=== PATIENT | female | born 1970 | race American Indian/Alaskan Native ===

== ENCOUNTER 2017-11-16 23:33 | Emergency (ER) | payer BC ==
[2017-11-16 23:33] VITALS: BMI 30.5
[2017-11-16 23:52] VITALS: BP 116/65; PULSE 83; RESP 18; TEMP 97.8; O2SAT 100
--- NOTE | 2017-11-17 00:09 | ED PDOC ---
Arrival/HPI - General Chief Complaint: Abdominal Pain Time Seen by Provider: 11/16/17 23:55 Historian: Patient - History of Present Illness Narrative History of Present Illness (Text): 11/17/17 00:01 A 47 year old female, with no significant past medical history, presents to the emergency department complaining of 3 week duration, intermittent left upper abdominal discomfort that radiates to the left flank area. The patient states that she has been experiencing some urinary urgency. Her appetite is intact.Patient is currently menstruating. Patient denies fevers, chills, headache, dizziness, chest pain, shortness of breath, dyspnea on exertion, cough , nausea, vomiting, diarrhea, back pain, neck pain, bowel changes, or any other complaint. Time/Duration: Other (3 weeks) Symptom Onset: Sudden Symptom Course: Unchanged Activities at Onset: Rest, Light Context: Home Past Medical History - Provider Review Nursing Documentation Reviewed: Yes - Infectious Disease Hx of Infectious Diseases: None - Tetanus Immunization Tetanus Immunization: Unknown - Cardiac Hx Cardiac Arrhythmia: Yes (tachycardia) - Pulmonary Hx Asthma: Yes Hx Bronchitis: Yes - Neurological Hx Neurological Disorder: No - HEENT Hx HEENT Disorder: No - Renal Hx Renal Disorder: No - Endocrine/Metabolic Hx Endocrine Disorders: No - Hematological/Oncological Hx Blood Disorders: No - Integumentary Hx Dermatological Disorder: No - Musculoskeletal/Rheumatological Hx Musculoskeletal Disorders: No - Gastrointestinal Hx Gastrointestinal Disorders: No - Genitourinary/Gynecological Hx Genitourinary Disorders: No - Psychiatric Hx Psychophysiologic Disorder: No Hx Depression: No Hx Emotional Abuse: No Hx Physical Abuse: No Hx Substance Use: No - Suicidal Assessment Feels Threatened In Home Enviroment: No Family/Social History - Physician Review Nursing Documentation Reviewed: Yes Family/Social History: No Known Family HX Smoking Status: Current Some Days Smoker Hx Alcohol Use: No Hx Substance Use: No Hx Substance Use Treatment: No Allergies/Home Meds Allergies/Adverse Reactions: Allergies No Known Allergies Allergy (Verified 11/16/17 23:41) Review of Systems - Physician Review All systems were reviewed & negative as marked: Yes - Review of Systems Constitutional: absent: Fevers, Night Sweats Respiratory: absent: SOB Cardiovascular: absent: Chest Pain, GONZALEZ Gastrointestinal: Abdominal Pain (Left upper abdominal pain). absent: Diarrhea , Nausea, Vomiting Genitourinary Female: Other (Urinary Urgency) Musculoskeletal: Back Pain (Left flank pain). absent: Neck Pain Neurological: absent: Headache, Dizziness Physical Exam Vital Signs Temp Pulse Resp BP Pulse Ox 11/16/17 23:50 97.8 F 83 18 116/65 100 Temperature: Afebrile Blood Pressure: Normal Pulse: Regular Respiratory Rate: Normal Appearance: Positive for: Well-Appearing, Non-Toxic, Comfortable Pain Distress: None Mental Status: Positive for: Alert and Oriented X 3 - Systems Exam Head: Present: Atraumatic, Normocephalic Pupils: Present: PERRL Extroacular Muscles: Present: EOMI Conjunctiva: Present: Normal Mouth: Present: Moist Mucous Membranes Neck: Present: Normal Range of Motion Respiratory/Chest: Present: Clear to Auscultation, Good Air Exchange. No: Respiratory Distress, Accessory Muscle Use Cardiovascular: Present: Regular Rate and Rhythm, Normal S1, S2. No: Murmurs Abdomen: No: Tenderness, Distention, Peritoneal Signs Back: Present: Normal Inspection. No: CVA Tenderness Upper Extremity: Present: Normal Inspection. No: Cyanosis, Edema Lower Extremity: Present: Normal Inspection. No: Edema Neurological: Present: GCS=15, CN II-XII Intact, Speech Normal Skin: Present: Warm, Dry, Normal Color. No: Rashes Psychiatric: Present: Alert, Oriented x 3, Normal Insight, Normal Concentration Medical Decision Making ED Course and Treatment: 11/17/17 00:10 Impression: A 47 year old female presents to the emergency department complaining of intermittent left upper abdominal pain radiating to the left flank area for the past 3 weeks. Plan: -- Urinalysis -- Labs -- IV Fluids -- Reassess and disposition Progress Notes: CT Abdomen and Pelvis Without Intravenous Contrast Dictated and Authenticated by: Abdiel Chan MD 11/17/2017 3:01 AM Eastern Time ([place] & [place]) IMPRESSION: 1. Mild haziness vs fatty infiltration of pancreas. Correlate with amylase/ lipase levels to exclude pancreatitis. 2. Possible cystitis. Correlate with urinalysis. 2. Pulmonary nodule. For low-risk patients, no follow-up is necessary. For high- risk patients (smoking history or other known risk factors) an optional CT at 12 months could be performed. 3. Incidental/non-acute findings are described above. - Lab Interpretations Lab Results: 11/17/17 00:20 11/17/17 00:20 Lab Results 11/17/17 00:20: WBC 7.8 D, RBC 4.37, Hgb 13.5, Hct 39.4, MCV 90.2, MCH 30.9, MCHC 34.3, RDW 14.0, Plt Count 269, MPV 10.1 11/17/17 00:20: Sodium 140, Potassium 3.7, Chloride 105, Carbon Dioxide 26, Anion Gap 13, BUN 11, Creatinine 0.6 L, Est GFR ( Amer) > 60, Est GFR ( Non-Af Amer) > 60, Random Glucose 106, Calcium 9.9, Total Bilirubin 0.2, AST 15 , ALT 17, Alkaline Phosphatase 77, Total Protein 6.9, Albumin 4.1, Globulin 2.8 , Albumin/Globulin Ratio 1.5, Lipase 141 11/17/17 00:20: Urine Color Yellow, Urine Appearance Cloudy, Urine pH 6.0, Ur Specific [place] 1.025, Urine Protein Trace H, Urine Glucose (UA) Negative, Urine Ketones Trace H, Urine Blood Large H, Urine Nitrate Negative, Urine Bilirubin Negative, Urine Urobilinogen 0.2, Ur Leukocyte Esterase Trace H, Urine RBC 5 - 10, Urine WBC 2 - 5, Ur Epithelial Cells 6 - 8, Urine Bacteria Large, Urine Other Mucus, Urine HCG, Qual Negative I have reviewed the lab results: Yes - RAD Interpretation Radiology Orders: 11/17/17 01:57 ABD & PELVIS W/O PO OR IV CONT [CT] Stat - Medication Orders Current Medication Orders: Discontinued Medications Cephalexin Monohydrate (Keflex) 500 mg PO ONCE STA PRN Reason: Protocol Stop: 11/17/17 03:10 Last Admin: 11/17/17 03:22 Dose: 500 mg Sodium Chloride (Sodium Chloride 0.9%) 1,000 mls @ 100 mls/hr IV .Q10H MARRY Last Admin: 11/17/17 00:30 Dose: Not Given Non-Admin Reason: Patient Refused Tramadol HCl (Ultram) 50 mg PO STAT STA Stop: 11/17/17 03:10 Last Admin: 11/17/17 03:22 Dose: 50 mg MAR Pain Assessment Document 11/17/17 03:22 CNR (Rec: 11/17/17 03:22 CNR [id number]) Pain Reassessment Is this a pain reassessment? Yes - Scribe Statement The provider has reviewed the documentation as recorded by the Scribe Charleen Hare Provider Scribe Attestation: All medical record entries made by the Scribe were at my direction and personally dictated by me. I have reviewed the chart and agree that the record accurately reflects my personal performance of the history, physical exam, medical decision making, and the department course for this patient. I have also personally directed, reviewed, and agree with the discharge instructions and disposition. Disposition/Present on Arrival - Present on Arrival Any Indicators Present on Arrival: No History of DVT/PE: No History of Uncontrolled Diabetes: No Urinary Catheter: No History of Decub. Ulcer: No History Surgical Site Infection Following: None - Disposition Have Diagnosis and Disposition been Completed?: Yes Diagnosis: Cystitis Disposition: HOME/ ROUTINE Disposition Time: 02:55 Patient Plan: Discharge Condition: GOOD Discharge Instructions (ExitCare): Urinary Tract Infections in Adults, Acute Cystitis (DC) Additional Instructions: Drink plenty of liquids/take meds as prescribed/Follow up with your doctor this week to review your tests Prescriptions: Cephalexin [cephalexin] 500 mg PO BID #14 cap Tramadol HCl [Ultram] 50 mg PO Q6 PRN #12 tab PRN Reason: Pain, Moderate (4-7) Forms: [employer] ([place])
[2017-11-17] MEDS ORDERED: Sodium Chloride 0.9% 1,000 ML IV SCH (00:15)
[2017-11-17 00:38] LABS: HEMOGLOBIN 13.5 g/dL (12.0-16.0); MEAN CELL VOLUME 90.2 fl (80.0-105.0); MEAN CORPUSCULAR HEMOGLOBIN 30.9 pg (25.0-35.0); MEAN CORPUSCULAR HGB CONC 34.3 g/dl (31.0-37.0); MEAN PLATELET VOLUME 10.1 fl (7.0-11.0); RBC 4.37 10^6/uL (3.5-6.1); WHITE BLOOD COUNT 7.8 10^3/ul (4.5-11.0)
[2017-11-17 00:40] LABS: URINE BILIRUBIN NEGATIVE (NEGATIVE); URINE BLOOD LARGE (NEGATIVE); URINE GLUCOSE (UA) NEGATIVE (NEGATIVE); URINE LEUKOCYTE ESTERASE TRACE Leu/uL (NEGATIVE); URINE PROTEIN TRACE mg/dL (<30 mg/dL); URINE UROBILINOGEN 0.2 E.U./dL (<1 E.U./dL)
[2017-11-17 00:44] LABS: URINE APPEARANCE CLOUDY (CLEAR); URINE COLOR YELLOW (YELLOW)
[2017-11-17 00:59] LABS: ALB/GLOB RATIO 1.5 (1.1-1.8); ALBUMIN 4.1 g/dL (3.0-4.8); ALT/SGPT 17 U/L (7-56); AST/SGOT 15 U/L (14-36); BLOOD UREA NITROGEN 11 mg/dL (7-21); CALCIUM 9.9 mg/dL (8.4-10.5); GFR AFRICAN-AMERICAN > 60; GFR NON-AFRICAN AMERICAN > 60; LIPASE 141 U/L (23-300)
[2017-11-17 01:17] LABS: HCG,QUALITATIVE URINE NEGATIVE (NEGATIVE); URINE BACTERIA LARGE (NEG)
--- NOTE | 2017-11-17 03:01 | CT ---
EXAM: CT Abdomen and Pelvis Without Intravenous Contrast CLINICAL HISTORY: 47 years old, female; Pain; Abdominal pain; Generalized TECHNIQUE: Axial computed tomography images of the abdomen and pelvis without intravenous contrast. All CT scans at this facility use one or more dose reduction techniques, viz.: automated exposure control; ma/kV adjustment per patient size (including targeted exams where dose is matched to indication; i.e. head); or iterative reconstruction technique. Coronal and sagittal reformatted images were created and reviewed. COMPARISON: No relevant prior studies available. FINDINGS: Limitations: Motion artifact - mild. Lack of intravenous contrast. Lung bases: 0.3 cm RIGHT lower lobe nodule. ABDOMEN: Liver: Unremarkable. Gallbladder and bile ducts: No calcified stones. No ductal dilation. Pancreas: Mild haziness versus fatty infiltration of pancreas. No pancreatic ductal dilation. Spleen: No splenomegaly. Adrenals: No mass. Kidneys and ureters: No renal calculi. Stomach and bowel: Segmental areas of probable underdistention of LEFT colon. No definite mural thickening. No obstruction. PELVIS: Appendix: Normal caliber. No inflammation. Bladder: Borderline bladder wall thickening, 4-5 mm. No stones. Reproductive: Small left ovarian follicle. ABDOMEN and PELVIS: Intraperitoneal space: No significant fluid collection. No free air. Bones/joints: No acute fracture. Soft tissues: Small umbilical hernia containing fat. Vasculature: Minimal to mild atherosclerotic disease. No aneurysm. Lymph nodes: No pathologically enlarged lymph nodes. IMPRESSION: 1. Mild haziness vs fatty infiltration of pancreas. Correlate with amylase/lipase levels to exclude pancreatitis. 2. Possible cystitis. Correlate with urinalysis. 2. Pulmonary nodule. For low-risk patients, no follow-up is necessary. For high-risk patients (smoking history or other known risk factors) an optional CT at 12 months could be performed. 3. Incidental/non-acute findings are described above.
== END 2017-11-17 03:22 | disposition home or self-care (01) ==
LOC: ED 23:33
DX: N30.90 Cystitis, unspecified without hematuria (principal); F17.200 Nicotine dependence, unspecified, uncomplicated

== ENCOUNTER 2018-01-16 02:45 | Emergency (ER) | payer BC ==
[2018-01-16 02:58] VITALS: BMI 29.4
--- NOTE | 2018-01-16 03:24 | ED PDOC ---
Arrival/HPI - General Chief Complaint: Abdominal Pain Time Seen by Provider: 01/16/18 03:05 Historian: Patient - History of Present Illness Narrative History of Present Illness (Text): 01/16/18 03:15 47 year old female presents to the Emergency department complaining of abdominal pain. Patient was evaluated here approximately 2 months ago for abdominal pain and was diagnosed with a UTI. Patient followed up with manager billing who states she did not have a UTI but rather a bacterial infection. Tonight, the patient was showering when she suddenly experienced severe pain in the periumbilical area that radiated up to her chest. The patient because scared and thought she would collapse so she called emergency services. Patient states that the pain was severe while at home and in the ambulance but has improved while in the Emergency department. Patient also reports that she has not had a bowel movement in 4 days but this is normal for her. She explained that the older she gets, the longer it is between bowel movements, and the worse she feels. Patient denies any fever, chills, shortness of breath, nausea, vomiting, diarrhea, urinary symptoms, back pain, neck pain, headache, dizziness, or any other complaints. Time/Duration: 1-3 hours, < week Symptom Onset: Sudden, Gradual Symptom Course: Improving Activities at Onset: Light Context: Home Past Medical History - Provider Review Nursing Documentation Reviewed: Yes - Infectious Disease Hx of Infectious Diseases: None - Tetanus Immunization Tetanus Immunization: Unknown - Cardiac Hx Cardiac Disorders: Yes Hx Cardiac Arrhythmia: Yes (tachycardia) - Pulmonary Hx Respiratory Disorders: Yes Hx Asthma: Yes Hx Bronchitis: Yes - Neurological Hx Neurological Disorder: No - HEENT Hx HEENT Disorder: No - Renal Hx Renal Disorder: No - Endocrine/Metabolic Hx Endocrine Disorders: No - Hematological/Oncological Hx Blood Disorders: No - Integumentary Hx Dermatological Disorder: No - Musculoskeletal/Rheumatological Hx Musculoskeletal Disorders: No - Gastrointestinal Hx Gastrointestinal Disorders: No - Genitourinary/Gynecological Hx Genitourinary Disorders: No - Psychiatric Hx Psychophysiologic Disorder: No Hx Substance Use: No - Suicidal Assessment Feels Threatened In Home Enviroment: No Family/Social History - Physician Review Nursing Documentation Reviewed: Yes Family/Social History: Unknown Family HX Smoking Status: Current Some Days Smoker Hx Alcohol Use: Yes Frequency of alcohol use: Socially Hx Substance Use: No Hx Substance Use Treatment: No Allergies/Home Meds Allergies/Adverse Reactions: Allergies No Known Allergies Allergy (Verified 01/16/18 03:17) Review of Systems - Physician Review All systems were reviewed & negative as marked: Yes - Review of Systems Constitutional: absent: Fevers, Night Sweats Respiratory: absent: SOB Gastrointestinal: Abdominal Pain, Constipation. absent: Diarrhea, Nausea, Vomiting Genitourinary Female: absent: Dysuria Musculoskeletal: absent: Back Pain, Neck Pain Neurological: absent: Headache, Dizziness Physical Exam Vital Signs Reviewed: Yes Vital Signs Temp Pulse Resp BP Pulse Ox 01/16/18 04:45 78 18 100 01/16/18 02:55 97.6 F 80 18 126/77 100 Temperature: Afebrile Blood Pressure: Normal Pulse: Regular Respiratory Rate: Normal Appearance: Positive for: Well-Appearing, Non-Toxic, Comfortable Pain Distress: None Mental Status: Positive for: Alert and Oriented X 3 - Systems Exam Head: Present: Atraumatic, Normocephalic Pupils: Present: PERRL Extroacular Muscles: Present: EOMI Conjunctiva: Present: Normal Mouth: Present: Moist Mucous Membranes Neck: Present: Normal Range of Motion Respiratory/Chest: Present: Clear to Auscultation, Good Air Exchange. No: Respiratory Distress, Accessory Muscle Use Cardiovascular: Present: Regular Rate and Rhythm, Normal S1, S2. No: Murmurs Abdomen: No: Tenderness, Distention, Normal Bowel Sounds (hyperactive bowel sounds) Back: Present: Normal Inspection Upper Extremity: Present: Normal Inspection. No: Cyanosis, Edema Lower Extremity: Present: Normal Inspection. No: Edema Neurological: Present: GCS=15, CN II-XII Intact, Speech Normal Skin: Present: Warm, Dry, Normal Color. No: Rashes Psychiatric: Present: Alert, Oriented x 3, Normal Insight, Normal Concentration Medical Decision Making ED Course and Treatment: 01/16/18 03:25 Impression: 47 year old female presents to the Emergency department complaining of abdominal pain. Plan: -- CT scan of the abdomen and pelvis -- Chest xray -- EKG -- Labs -- Reassess and disposition Prior Visits: Notes and results from previous visits were reviewed. Patient was last seen in the emergency department on 11/17/17, was diagnosed with cystitis, and was discharged home. Progress Notes: 01/16/18 03:43 Patient complaining of pain at this time. Will administer Toradol, Zofran, and Mylicon. 01/16/18 06:37 CT report shows abnormalities with urinary bladder and pancreas. Radiologist recommends MRI Abdomen for clarification. Ordered after discussing this with the patient. UA/c+s also ordered. Will endorse patient to oncoming physician as it is the end of my clinical shift. - Lab Interpretations Lab Results: 01/16/18 03:15 01/16/18 03:15 Lab Results 01/16/18 03:15: Sodium 140, Potassium 3.5 L, Chloride 104, Carbon Dioxide 26, Anion Gap 14, BUN 15, Creatinine 0.7, Est GFR ( Amer) > 60, Est GFR (Non- Af Amer) > 60, Random Glucose 106, Calcium 9.8, Total Bilirubin 0.3, AST 19, ALT 23, Alkaline Phosphatase 81, Lactate Dehydrogenase 479, Total Creatine Kinase 65, Troponin I < 0.01, Total Protein 6.9, Albumin 3.9, Globulin 2.9, Albumin/Globulin Ratio 1.3, Lipase 138 01/16/18 03:15: PT 11.1, INR 0.97 01/16/18 03:15: WBC 5.0 D, RBC 4.37, Hgb 13.6, Hct 39.1, MCV 89.5, MCH 31.1, MCHC 34.8, RDW 13.5, Plt Count 240, MPV 9.8, Gran % 42.6 L, Lymph % (Auto) 49.4 H, [place] % (Auto) 4.6, Eos % (Auto) 3.2, Baso % (Auto) 0.2, Gran # 2.13, Lymph # (Auto) 2.5, [place] # (Auto) 0.2, Eos # (Auto) 0.2, Baso # (Auto) 0.01 - RAD Interpretation Radiology Orders: 01/16/18 03:19 ABD PELVIS PO & IV CONTRAST [CT] Stat CXR [CHEST PORTABLE] [RAD] Stat 01/16/18 06:36 ABDOMEN W/WO CONTRAST [MRI] Stat - EKG Interpretation EKG Interpretation (Text): 01/16/18 05:20 EKG: Ordered, reviewed, and independently interpreted the EKG. Rate : 81 BPM Rhythm : NSR Interpretation : No ST-segment elevations or depressions, no T-wave inversions, normal intervals. Interpreted by ED Physician: Yes Type: 12 lead EKG - Medication Orders Current Medication Orders: Discontinued Medications Sodium Chloride (Sodium Chloride 0.9%) 1,000 mls @ 999 mls/hr IV .Q1H1M STA Stop: 01/16/18 04:42 Last Admin: 01/16/18 04:03 Dose: 999 mls/hr eMAR Start Stop Document 01/16/18 04:03 JOL (Rec: 01/16/18 04:03 CHRISTIANO [email or web address]) Intravenous Solution Start Date 01/16/18 Start Time 04:03 End Date 01/16/18 End time 04:04 Total Infusion Time 1 Ketorolac Tromethamine (Toradol) 30 mg IVP STAT STA Stop: 01/16/18 03:43 Last Admin: 01/16/18 04:03 Dose: 30 mg BRITT Pain Assessment Document 01/16/18 04:03 JOL (Rec: 01/16/18 04:04 CHRISTIANO [id number]) Pain Reassessment Is this a pain reassessment? No Sleep Is patient sleeping during reassessment? No Presence of Pain Presence of Pain Yes Pain Scale Used Pain Scale Used Numeric Location Upper or Lower Upper Pain Location Body Site Abdomen Description Intensity of Pain at present 8 Acceptable Level of Pain 2 Pain Behavior Moaning Crying Guarding Withdrawal from Touch Restlessness Facial Grimacing IVP Administration Document 01/16/18 04:03 JOL (Rec: 01/16/18 04:04 CHRISTIANO [id number]) Charges for Administration # of IVP Administrations 1 Re-Assess: MAR Pain Assessment Document 01/16/18 05:03 JOL (Rec: 01/16/18 05:27 JOL [id number]) Pain Reassessment Is this a pain reassessment? Yes Sleep Is patient sleeping during reassessment? No Presence of Pain Presence of Pain Yes Pain Scale Used Pain Scale Used Numeric Location Pain Location Body Site Abdomen Description Intensity of Pain at present 8 Pain not relieved and LIP/MD was Yes: new orders given notified Morphine Sulfate (Morphine) 2 mg IVP STAT STA Stop: 01/16/18 04:55 Last Admin: 01/16/18 04:45 Dose: 2 mg MAR Pain Assessment Document 01/16/18 04:45 JOL (Rec: 01/16/18 05:24 CHRISTIANO [id number]) Pain Reassessment Is this a pain reassessment? No Sleep Is patient sleeping during reassessment? No Presence of Pain Presence of Pain Yes Pain Scale Used Pain Scale Used Numeric Location Upper or Lower Upper Pain Location Body Site Abdomen Description Intensity of Pain at present 8 Pain Behavior Moaning Restlessness Facial Grimacing Thrashing Aggravating Factors ADL's Changing Position IVP Administration Document 01/16/18 04:45 JOL (Rec: 01/16/18 05:24 CHRISTIANO [id number]) Charges for Administration # of IVP Administrations 1 Ondansetron HCl (Zofran Inj) 4 mg IVP STAT STA Stop: 01/16/18 03:43 Last Admin: 01/16/18 04:04 Dose: 4 mg IVP Administration Document 01/16/18 04:04 JOL (Rec: 01/16/18 04:04 CHRISTIANO [email or web address]) Charges for Administration # of IVP Administrations 1 Simethicone (Mylicon Liq) 80 mg PO STAT STA Stop: 01/16/18 03:43 Last Admin: 01/16/18 04:03 Dose: 80 mg - Scribe Statement The provider has reviewed the documentation as recorded by the Thee Wang Provider Scribe Attestation: All medical record entries made by the Thee were at my direction and personally dictated by me. I have reviewed the chart and agree that the record accurately reflects my personal performance of the history, physical exam, medical decision making, and the department course for this patient. I have also personally directed, reviewed, and agree with the discharge instructions and disposition. Disposition/Present on Arrival - Present on Arrival Any Indicators Present on Arrival: No History of DVT/PE: No History of Uncontrolled Diabetes: No Urinary Catheter: No History of Decub. Ulcer: No History Surgical Site Infection Following: None - Disposition Have Diagnosis and Disposition been Completed?: Yes Diagnosis: Abdominal pain, Generalized colicky abdominal pain Disposition Time: 07:00 (endorsed to oncoming physician ) Patient Plan: Other (transfer of care to oncoming physician. ) Patient Problems: Current Active Problems Problem Status Onset Abdominal pain Acute Generalized colicky abdominal pain Acute Condition: STABLE Discharge Instructions (ExitCare): Acute Abdomen (Belly Pain), Adult (DC) Referrals: Xavier Soto MD [Primary Care Provider] - Follow up with primary Forms: [employer] (Chinese), WORK NOTE, SCHOOL NOTE
[2018-01-16 03:32] LABS: BASO # 0.01 K/mm3 (0.0-2.0); BASO % 0.2 % (0.0-3.0); EOS # 0.2 (0.0-0.7); EOS % 3.2 % (1.5-5.0); GRAN # 2.13 (1.4-6.5); GRAN % 42.6 % (50.0-68.0); HEMOGLOBIN 13.6 g/dL (12.0-16.0); LYMPH # 2.5 (1.2-3.4); LYMPH % 49.4 % (22.0-35.0); MEAN CELL VOLUME 89.5 fl (80.0-105.0); MEAN CORPUSCULAR HEMOGLOBIN 31.1 pg (25.0-35.0); MEAN CORPUSCULAR HGB CONC 34.8 g/dl (31.0-37.0); MEAN PLATELET VOLUME 9.8 fl (7.0-11.0); MONO # 0.2 (0.1-0.6); MONO % 4.6 % (1.0-6.0); RBC 4.37 10^6/uL (3.5-6.1); RED CELL DISTRIBUTION WIDTH 13.5 % (11.5-14.5)
[2018-01-16 03:38] LABS: INR 0.97 (0.93-1.08); PROTHROMBIN TIME 11.1 SECONDS (9.4-12.5)
[2018-01-16 03:39] LABS: ALB/GLOB RATIO 1.3 (1.1-1.8); ALBUMIN 3.9 g/dL (3.0-4.8); ALT/SGPT 23 U/L (7-56); AST/SGOT 19 U/L (14-36); BLOOD UREA NITROGEN 15 mg/dL (7-21); CALCIUM 9.8 mg/dL (8.4-10.5); GFR NON-AFRICAN AMERICAN > 60; LIPASE 138 U/L (23-300)
[2018-01-16] MEDS ORDERED: Simethicone 40 mg/0.6 ml Liquid (30 ml) PO STA (03:42)
[2018-01-16] MEDS ORDERED: Iohexol 240 (50 ml) ONE (03:42)
[2018-01-16] MEDS ORDERED: Sodium Chloride 0.9% 1,000 ML IV STA (03:42)
[2018-01-16] MEDS ORDERED: Iohexol 350 MG/100 ML VIAL ONE (03:49)
[2018-01-16 03:51] LABS: TROPONIN I < 0.01 ng/mL
[2018-01-16] MEDS ORDERED: Morphine 4 mg/ml ISec IVP STA (04:43)
[2018-01-16] MEDS ORDERED: Morphine 4 mg/ml ISec ONE (04:44)
[2018-01-16] MEDS ORDERED: Morphine 2 mg/ml ISec IVP STA (04:54)
--- NOTE | 2018-01-16 06:28 | CT ---
EXAM: CT Abdomen and Pelvis With Intravenous Contrast CLINICAL HISTORY: 47 years old, female; Pain; Abdominal pain; Generalized; Additional info: Generalized abdominal pain TECHNIQUE: Axial computed tomography images of the abdomen and pelvis with intravenous contrast. All CT scans at this facility use at least one of these dose optimization techniques: automated exposure control; mA and/or kV adjustment per patient size (includes targeted exams where dose is matched to clinical indication); or iterative reconstruction. Coronal and sagittal reformatted images were created and reviewed. COMPARISON: CT - ABD PELVIS W/O PO OR IV CONT 2017-11-17 02:12 FINDINGS: Lung bases: Unremarkable. No mass. No consolidation. ABDOMEN: Liver: Unremarkable. No mass. Gallbladder and bile ducts: Unremarkable. No calcified stones. No ductal dilation. Pancreas: There is a poorly defined, irregular area of low attenuation abnormality in the head of the pancreas (series 2, image 33). Differential diagnosis includes pancreatitis, pancreatic mass. Please assess whether this may correspond to patient's clinical presentation. Followup MRI of the abdomen with special attention to the pancreas is recommended. No ductal dilation. Spleen: Unremarkable. No splenomegaly. Adrenals: Unremarkable. No mass. Kidneys and ureters: Unremarkable. No solid mass. No hydronephrosis. Stomach and bowel: Unremarkable. No obstruction. No mucosal thickening. PELVIS: Appendix: A normal appendix is identified. Bladder: There is urinary bladder wall thickening. This is nonspecific but can be seen in the setting of cystitis, please correlate clinically. Reproductive: Unremarkable as visualized. ABDOMEN and PELVIS: Intraperitoneal space: Unremarkable. No free air. No significant fluid collection. Bones/joints: No acute fracture. No dislocation. Soft tissues: Unremarkable. Vasculature: Unremarkable. No abdominal aortic aneurysm. Lymph nodes: Unremarkable. No enlarged lymph nodes. IMPRESSION: 1. There is urinary bladder wall thickening. This is nonspecific but can be seen in the setting of cystitis, please correlate clinically. 2. There is a poorly defined, irregular area of low attenuation abnormality in the head of the pancreas (series 2, image 33). Differential diagnosis includes pancreatitis, pancreatic mass. Please assess whether this may correspond to patient's clinical presentation. Followup MRI of the abdomen with special attention to the pancreas is recommended.
[2018-01-16 06:45] LABS: PH,URINE 6.5 (4.7-8.0); URINE BILIRUBIN NEGATIVE (NEGATIVE); URINE BLOOD NEGATIVE (NEGATIVE); URINE GLUCOSE (UA) NEGATIVE (NEGATIVE); URINE LEUKOCYTE ESTERASE NEGATIVE Leu/uL (NEGATIVE); URINE PROTEIN NEGATIVE mg/dL (<30 mg/dL); URINE UROBILINOGEN 0.2 E.U./dL (<1 E.U./dL)
[2018-01-16 06:46] LABS: URINE APPEARANCE CLEAR (CLEAR); URINE COLOR STRAW (YELLOW)
--- NOTE | 2018-01-16 07:13 | ED PDOC ---
Physical Exam - Physical Exam Narrative Physical Exam (Text): 01/16/18 07:31 General: alert/awake, GCS = 15, oriented x 3, resting in bed, uncomfortable, cooperative, interactive; NAD Head: NC/AT EYE: PERRLA, EOMI, sclera anicteric, no nystagmus, no photophobia; visual field intact b/l Facial: WNL Oral: uvula/tongue are midline, no exudate/lesions, no drooling/stridor, no dysphonia; intact dentitions NECK: intact ROM, no midline tenderness, no nuchal rigidity, no meningeal signs ; no step off Chest: CTA b/l, no w/r/r; no tachypenia, no accessory muscle use noted Cardiac: +S1, +S2, no m/r/r, no tachycardia Abdominal: +BS, soft/nd, mild mid abd tenderness, well nourished patient; no masses/rebound/guarding/rigidity; no caballero's sign, no mcburney's point tenderness Extremities: intact ROM, strength 5/5 grossly intact in all limbs, neurovasc intact b/l; + ambulatory; reflex +2/2; no pitting edema/swelling b/l; no Del' s sign b/l BACK: no step off, no midline tenderness, NO crepitus, no gross deformities noted; Intact ROM SKIN: cap refill < 1 sec, no ulcerations, no petechiae, no rashes; no pallor NEURO: CNII-XII WNL, no facial asymmetries, no slurr speech, oriented x 3 NIH stroke scale ~ 0 Psych: normal insight, normal affect; follows command with ease Vital Signs Reviewed: Yes Vital Signs Temp Pulse Resp BP Pulse Ox 01/16/18 13:30 100 01/16/18 13:21 64 18 126/78 100 01/16/18 11:20 68 17 125/80 99 01/16/18 09:36 65 17 121/78 99 01/16/18 07:33 99.1 F 01/16/18 07:15 68 17 123/80 99 01/16/18 06:45 76 18 120/71 99 01/16/18 04:45 78 18 100 01/16/18 02:55 97.6 F 80 18 126/77 100 Temperature: Afebrile Blood Pressure: Normal Pulse: Regular Respiratory Rate: Normal Appearance: Positive for: Well-Appearing, Non-Toxic, Uncomfortable. No: Comfortable, Ill-Appearing, Unkept Pain Distress: None Mental Status: Positive for: Alert and Oriented X 3 - Systems Exam Head: Present: Atraumatic, Normocephalic Medical Decision Making ED Course and Treatment: 01/16/18 07:10 Case signed out to me by Dr. Villanueva. Patient is a 47 year old female presents to the Emergency department complaining of abdominal pain associated with constipation since 4 days, which she states is common for her. All blood work was negative and CT scan revealed possible mass at the head of pancreas. radiology recommended MRI and Dr. Villanueva ordered it due to patient's concerns. pt is awaiting Urinalysis results as well, and final disposition. 01/16/18 07:32 i spoke to the patient at length, pt continues to have abd bloating and cramps pt is feeling improved after pain medications given patient's persistent pain/bloating/cramps and concerns, recommended pt for admission pt agrees will page Dr Soto 01/16/18 07:35 pt now changed her mind and would prefer to be discharged home 01/16/18 08:[address] Soto, who recommends MRI in emergency department. will refer patient to Dr. Hackett, and will continue to monitor as out- patient. 01/16/18 1200 pt is comfortable pt is not in acute distress awaiting MRI results 1325 pt is made aware of her medical results pt is encouraged blend diet/hydration pt will follow up as directed pt will be discharged home 1330 Dr Soto is at bedside, evaluated patient and agrees with emergency department mgt/txt/dx; will continue to monitor patient as outpt; pt can be discharged home Re-evaluation Time: 07:31 Reassessment Condition: Improving,but remains with symptoms - Lab Interpretations Lab Results: 01/16/18 03:15 01/16/18 03:15 Lab Results 01/16/18 06:39: Urine Color Straw, Urine Appearance Clear, Urine pH 6.5, Ur Specific [place] <= 1.005, Urine Protein Negative, Urine Glucose (UA) Negative, Urine Ketones Negative, Urine Blood Negative, Urine Nitrate Negative, Urine Bilirubin Negative, Urine Urobilinogen 0.2, Ur Leukocyte Esterase Negative 01/16/18 03:15: Sodium 140, Potassium 3.5 L, Chloride 104, Carbon Dioxide 26, Anion Gap 14, BUN 15, Creatinine 0.7, Est GFR ( Amer) > 60, Est GFR (Non- Af Amer) > 60, Random Glucose 106, Calcium 9.8, Total Bilirubin 0.3, AST 19, ALT 23, Alkaline Phosphatase 81, Lactate Dehydrogenase 479, Total Creatine Kinase 65, Troponin I < 0.01, Total Protein 6.9, Albumin 3.9, Globulin 2.9, Albumin/Globulin Ratio 1.3, Lipase 138 01/16/18 03:15: PT 11.1, INR 0.97 01/16/18 03:15: WBC 5.0 D, RBC 4.37, Hgb 13.6, Hct 39.1, MCV 89.5, MCH 31.1, MCHC 34.8, RDW 13.5, Plt Count 240, MPV 9.8, Gran % 42.6 L, Lymph % (Auto) 49.4 H, [place] % (Auto) 4.6, Eos % (Auto) 3.2, Baso % (Auto) 0.2, Gran # 2.13, Lymph # (Auto) 2.5, [place] # (Auto) 0.2, Eos # (Auto) 0.2, Baso # (Auto) 0.01 I have reviewed the lab results: Yes Interpretation: All labs normal - RAD Interpretation Narrative RAD Interpretations (Text): 01/16/18 07:37 CT Scan ABD PELVIS PO IV CONTRAST Exam Date: 01/16/18 This imaging exam was performed at [facility] EXAM: CT Abdomen and Pelvis With Intravenous Contrast CLINICAL HISTORY: 47 years old, female; Pain; Abdominal pain; Generalized; Additional info: Generalized abdominal pain TECHNIQUE: Axial computed tomography images of the abdomen and pelvis with intravenous contrast. All CT scans at this facility use at least one of these dose optimization techniques: automated exposure control; mA and/or kV adjustment per patient size (includes targeted exams where dose is matched to clinical indication); or iterative reconstruction. Coronal and sagittal reformatted images were created and reviewed. COMPARISON: CT - ABD PELVIS W/O PO OR IV CONT 2017-11-17 02:12 FINDINGS: Lung bases: Unremarkable. No mass. No consolidation. ABDOMEN: Liver: Unremarkable. No mass. Gallbladder and bile ducts: Unremarkable. No calcified stones. No ductal dilation. Pancreas: There is a poorly defined, irregular area of low attenuation abnormality in the head of the pancreas (series 2, image 33). Differential diagnosis includes pancreatitis, pancreatic mass. Please assess whether this may correspond to patient's clinical presentation. Followup MRI of the abdomen with special attention to the pancreas is recommended. No ductal dilation. Spleen: Unremarkable. No splenomegaly. Adrenals: Unremarkable. No mass. Kidneys and ureters: Unremarkable. No solid mass. No hydronephrosis. Stomach and bowel: Unremarkable. No obstruction. No mucosal thickening. PELVIS: Appendix: A normal appendix is identified. Bladder: There is urinary bladder wall thickening. This is nonspecific but can be seen in the setting of cystitis, please correlate clinically. Reproductive: Unremarkable as visualized. ABDOMEN and PELVIS: Intraperitoneal space: Unremarkable. No free air. No significant fluid collection. Bones/joints: No acute fracture. No dislocation. Soft tissues: Unremarkable. Vasculature: Unremarkable. No abdominal aortic aneurysm. Lymph nodes: Unremarkable. No enlarged lymph nodes. IMPRESSION: 1. There is urinary bladder wall thickening. This is nonspecific but can be seen in the setting of cystitis, please correlate clinically. 2. There is a poorly defined, irregular area of low attenuation abnormality in the head of the pancreas (series 2, image 33). Differential diagnosis includes pancreatitis, pancreatic mass. Please assess whether this may correspond to patient's clinical presentation. Followup MRI of the abdomen with special attention to the pancreas is recommended. Dictated By: Robin Chang MD, MD Dictated Date/Time: 01/16/18627 Signed By: Robin Chang MD Date Signed: 627 Transcribed By: PERRY Transcribe Date/Time : 01/16/18627 GAETANO/DELANO ---- 01/16/18 07:38 Chest X-Ray - NAD HISTORY: Epigastric Pain COMPARISON: 04/16/2014. FINDINGS: LUNGS: The lungs are well inflated and clear. PLEURA: No significant pleural effusion identified, no pneumothorax apparent. CARDIOVASCULAR: Normal. OSSEOUS STRUCTURES: No significant abnormalities. VISUALIZED UPPER ABDOMEN: Normal. OTHER FINDINGS: None. IMPRESSION: No active pulmonary disease ---- PROCEDURE: MRI Abdomen with and without contrast and MRCP HISTORY: Abnormal CT. Possible pancreatic mass. COMPARISON: CT abdomen/pelvis 01/16/2018. TECHNIQUE: Multisequence, multiplanar MR images of the abdomen with and without gadolinium contrast enhancement. FINDINGS: LIVER: Normal size, contour and signal intensity. No mass. No intrahepatic biliary ductal dilatation. GALLBLADDER: Cholelithiasis. No mural thickening or pericholecystic fluid. Common bile duct 6 mm diameter. No filling defect identified. Normal distal smooth tapering. SPLEEN: Unremarkable. PANCREAS: No mass. No abnormal enhancement. No pancreatic ductal dilatation. No peripancreatic fluid or edema. ADRENALS: Unremarkable. KIDNEYS: Unremarkable. AORTA: No aneurysm. ASCITES: None. PERITONEUM: Unremarkable. LYMPH NODES: Unremarkable. OTHER FINDINGS: None. IMPRESSION: No evidence pancreatic mass. No evidence of pancreatitis. Cholelithiasis without evidence of cholecystitis. No additional abnormality. 01/16/18 14:16 Radiology Orders: 01/16/18 03:19 ABD PELVIS PO & IV CONTRAST [CT] Stat CXR [CHEST PORTABLE] [RAD] Stat 01/16/18 06:36 ABDOMEN W/WO CONTRAST [MRI] Stat Applications Engineering Manager: Radiologist - Medication Orders Current Medication Orders: Discontinued Medications Sodium Chloride (Sodium Chloride 0.9%) 1,000 mls @ 999 mls/hr IV .Q1H1M STA Stop: 01/16/18 04:42 Last Admin: 01/16/18 04:03 Dose: 999 mls/hr eMAR Start Stop Document 01/16/18 04:03 CHRISTIANO (Rec: 01/16/18 04:03 CHRISTIANO [id number]) Intravenous Solution Start Date 01/16/18 Start Time 04:03 End Date 01/16/18 End time 04:04 Total Infusion Time 1 Ketorolac Tromethamine (Toradol) 30 mg IVP STAT STA Stop: 01/16/18 03:43 Last Admin: 01/16/18 04:03 Dose: 30 mg BRITT Pain Assessment Document 01/16/18 04:03 JOL (Rec: 01/16/18 04:04 JOL [id number]) Pain Reassessment Is this a pain reassessment? No Sleep Is patient sleeping during reassessment? No Presence of Pain Presence of Pain Yes Pain Scale Used Pain Scale Used Numeric Location Upper or Lower Upper Pain Location Body Site Abdomen Description Intensity of Pain at present 8 Acceptable Level of Pain 2 Pain Behavior Moaning Crying Guarding Withdrawal from Touch Restlessness Facial Grimacing IVP Administration Document 01/16/18 04:03 JOL (Rec: 01/16/18 04:04 JOL [id number]) Charges for Administration # of IVP Administrations 1 Re-Assess: BRITT Pain Assessment Document 01/16/18 05:03 JOL (Rec: 01/16/18 05:27 JOL [id number]) Pain Reassessment Is this a pain reassessment? Yes Sleep Is patient sleeping during reassessment? No Presence of Pain Presence of Pain Yes Pain Scale Used Pain Scale Used Numeric Location Pain Location Body Site Abdomen Description Intensity of Pain at present 8 Pain not relieved and LIP/MD was Yes: new orders given notified Morphine Sulfate (Morphine) 2 mg IVP STAT STA Stop: 01/16/18 04:55 Last Admin: 01/16/18 04:45 Dose: 2 mg BRITT Pain Assessment Document 01/16/18 04:45 JOL (Rec: 01/16/18 05:24 JOL [id number]) Pain Reassessment Is this a pain reassessment? No Sleep Is patient sleeping during reassessment? No Presence of Pain Presence of Pain Yes Pain Scale Used Pain Scale Used Numeric Location Upper or Lower Upper Pain Location Body Site Abdomen Description Intensity of Pain at present 8 Pain Behavior Moaning Restlessness Facial Grimacing Thrashing Aggravating Factors ADL's Changing Position IVP Administration Document 01/16/18 04:45 JOL (Rec: 01/16/18 05:24 JOL [id number]) Charges for Administration # of IVP Administrations 1 Ondansetron HCl (Zofran Inj) 4 mg IVP STAT STA Stop: 01/16/18 03:43 Last Admin: 01/16/18 04:04 Dose: 4 mg IVP Administration Document 01/16/18 04:04 CHRISTIANO (Rec: 01/16/18 04:04 CHRISTIANO [id number]) Charges for Administration # of IVP Administrations 1 Simethicone (Mylicon Liq) 80 mg PO STAT STA Stop: 01/16/18 03:43 Last Admin: 01/16/18 04:03 Dose: 80 mg - Scribe Statement The provider has reviewed the documentation as recorded by the Coreenibe Allison Granados Provider Scribe Attestation: All medical record entries made by the Scribe were at my direction and personally dictated by me. I have reviewed the chart and agree that the record accurately reflects my personal performance of the history, physical exam, medical decision making, and the department course for this patient. I have also personally directed, reviewed, and agree with the discharge instructions and disposition. Disposition/Present on Arrival - Present on Arrival Any Indicators Present on Arrival: No History of DVT/PE: No History of Uncontrolled Diabetes: No Urinary Catheter: No History of Decub. Ulcer: No History Surgical Site Infection Following: None - Disposition Have Diagnosis and Disposition been Completed?: Yes Diagnosis: Abdominal pain, Generalized colicky abdominal pain, Gallstones Disposition: HOME/ ROUTINE Disposition Time: 13:05 Patient Plan: Discharge Condition: STABLE Discharge Instructions (ExitCare): Gallstones, Bonner Diet, Acute Abdomen ( Belly Pain), Adult (DC) Print Language: IVORIAN Additional Instructions: Make sure to see your doctor in 1-2 days DRINK PLENTY OF FLUIDS take your medications as prescribed AVOID fatty foods RETURN TO ED IF worse pain, cant breath, persistent vomiting, high fever >101- 102 for hours, altered behavior, slurr speech, facial changes, focal weakness ( arm/leg or both), unable to urinate, heavy/persistent bleeding, passing out, chest pain, or other medical emergencies Prescriptions: Famotidine [Pepcid] 20 mg PO BID #30 tab Ibuprofen [Motrin] 600 mg PO QID PRN #30 tab PRN Reason: Pain, Mild (1-3) traMADol [Ultram] 50 mg PO TID PRN #15 tab PRN Reason: Pain, Moderate (4-7) Referrals: Xavier Soto MD [Primary Care Provider] - Follow up with primary Ramon Miranda MD [Staff Provider] - Follow up with primary [facility] [facility] [Outside] - Follow up with primary [facility] [Outside] - [place] up [place] [facility] [place] - Follow up with primary Forms: [employer] [facility] (Tajik), WORK NOTE
[2018-01-16 07:33] VITALS: TEMP 99.1
--- NOTE | 2018-01-16 08:32 | RAD ---
HISTORY: Epigastric Pain COMPARISON: 04/16/2014. FINDINGS: LUNGS: The lungs are well inflated and clear. PLEURA: No significant pleural effusion identified, no pneumothorax apparent. CARDIOVASCULAR: Normal. OSSEOUS STRUCTURES: No significant abnormalities. VISUALIZED UPPER ABDOMEN: Normal. OTHER FINDINGS: None. IMPRESSION: No active pulmonary disease.
[2018-01-16] MEDS ORDERED: Gadodiamide 287 MG/ML VIAL (15ML) IV ONE (12:23)
--- NOTE | 2018-01-16 12:55 | MRI ---
PROCEDURE: MRI Abdomen with and without contrast and MRCP HISTORY: Abnormal CT. Possible pancreatic mass. COMPARISON: CT abdomen/pelvis 01/16/2018. TECHNIQUE: Multisequence, multiplanar MR images of the abdomen with and without gadolinium contrast enhancement. FINDINGS: LIVER: Normal size, contour and signal intensity. No mass. No intrahepatic biliary ductal dilatation. GALLBLADDER: Cholelithiasis. No mural thickening or pericholecystic fluid. Common bile duct 6 mm diameter. No filling defect identified. Normal distal smooth tapering. SPLEEN: Unremarkable. PANCREAS: No mass. No abnormal enhancement. No pancreatic ductal dilatation. No peripancreatic fluid or edema. ADRENALS: Unremarkable. KIDNEYS: Unremarkable. AORTA: No aneurysm. ASCITES: None. PERITONEUM: Unremarkable. LYMPH NODES: Unremarkable. OTHER FINDINGS: None. IMPRESSION: No evidence pancreatic mass. No evidence of pancreatitis. Cholelithiasis without evidence of cholecystitis. No additional abnormality.
[2018-01-16 13:21] VITALS: BP 126/78; PULSE 64; RESP 18; O2SAT 100
--- NOTE | 2018-01-16 22:56 | CARD ---
APPROVED REPORT EKG Measurement Heart [id number] <Conclusion> Normal sinus rhythm Nonspecific T wave abnormality Abnormal ECG
== END 2018-01-16 13:30 | disposition home or self-care (01) ==
LOC: ED 02:45
DX: R10.0 Acute abdomen (principal); K80.20 Calculus of gallbladder without cholecystitis without obstruction
CPT/HCPCS: 71045; 74177; 74183; 80053; 81003; 82550; 83615; 83690; 84484; 85025; 85610; 87086; 93005; 96374; 96375; 99285; A9579; J1885; J2270; J2405; J7030; Q9966; Q9967

== ENCOUNTER 2018-02-23 04:17 | Emergency (ER) | payer BC ==
[2018-02-23 04:18] VITALS: BMI 29.4
--- NOTE | 2018-02-23 04:29 | ED PDOC ---
Arrival/HPI - General Chief Complaint: Abdominal Pain Time Seen by Provider: 02/23/18 04:19 Historian: Patient - History of Present Illness Narrative History of Present Illness (Text): 02/23/18 04:29 Dana Mathew is a 47 year old female, whose past medical history includes cholelithiasis and asthma, who presents to the Emergency department complaining of worsening diffuse abdominal pain tonight. Patient reports associated nausea. Patient denies any fever, chills, chest pain, shortness of breath, vomiting, diarrhea, urinary symptoms, back pain, neck pain, headache, dizziness, or any other complaints. Symptom Onset: Gradual Symptom Course: Worsening Activities at Onset: Light Context: Home Past Medical History - Provider Review Nursing Documentation Reviewed: Yes - Infectious Disease Hx of Infectious Diseases: None - Tetanus Immunization Tetanus Immunization: Unknown - Cardiac Hx Cardiac Disorders: Yes Hx Cardiac Arrhythmia: Yes (tachycardia) - Pulmonary Hx Respiratory Disorders: Yes Hx Asthma: Yes Hx Bronchitis: Yes - Neurological Hx Neurological Disorder: No - HEENT Hx HEENT Disorder: No - Renal Hx Renal Disorder: No - Endocrine/Metabolic Hx Endocrine Disorders: No - Hematological/Oncological Hx Blood Disorders: No - Integumentary Hx Dermatological Disorder: No - Musculoskeletal/Rheumatological Hx Musculoskeletal Disorders: No - Gastrointestinal Hx Gastrointestinal Disorders: No - Genitourinary/Gynecological Hx Genitourinary Disorders: No - Psychiatric Hx Psychophysiologic Disorder: No Hx Substance Use: No - Suicidal Assessment Feels Threatened In Home Enviroment: No Family/Social History - Physician Review Nursing Documentation Reviewed: Yes Family/Social History: Unknown Family HX Smoking Status: Current Some Days Smoker Hx Alcohol Use: Yes Hx Substance Use: No Hx Substance Use Treatment: No Allergies/Home Meds Allergies/Adverse Reactions: Allergies No Known Allergies Allergy (Verified 02/23/18 04:24) Review of Systems - Physician Review All systems were reviewed & negative as marked: Yes - Review of Systems Constitutional: Normal. absent: Fevers Eyes: Normal ENT: Normal Respiratory: Normal. absent: SOB, Cough Cardiovascular: Normal. absent: Chest Pain Gastrointestinal: Abdominal Pain, Nausea. absent: Diarrhea, Vomiting Genitourinary Female: Normal. absent: Dysuria, Frequency, Hematuria, Urine Output Changes Musculoskeletal: Normal. absent: Back Pain, Neck Pain Skin: Normal. absent: Rash Neurological: Normal. absent: Headache, Dizziness Endocrine: Normal Hemo/Lymphatic: Normal Psychiatric: Normal Physical Exam Vital Signs Reviewed: Yes Vital Signs Pulse Resp BP Pulse Ox 02/23/18 04:24 100 H 24 134/89 100 Temperature: Afebrile Blood Pressure: Normal Pulse: Regular Respiratory Rate: Normal Appearance: Positive for: Well-Appearing, Non-Toxic, Comfortable Pain Distress: None Mental Status: Positive for: Alert and Oriented X 3 - Systems Exam Head: Present: Atraumatic, Normocephalic Pupils: Present: PERRL Extroacular Muscles: Present: EOMI Conjunctiva: Present: Normal Mouth: Present: Moist Mucous Membranes Neck: Present: Normal Range of Motion. No: Meningeal Signs, MIDLINE TENDERNESS , Paraspinal Tenderness Respiratory/Chest: Present: Clear to Auscultation, Good Air Exchange. No: Respiratory Distress, Accessory Muscle Use Cardiovascular: Present: Regular Rate and Rhythm, Normal S1, S2. No: Murmurs Abdomen: Present: Tenderness (Diffuse abdominal tenderness). No: Distention, Peritoneal Signs Back: Present: Normal Inspection. No: CVA Tenderness, Midline Tenderness, Paraspinal Tenderness Upper Extremity: Present: Normal Inspection. No: Cyanosis, Edema Lower Extremity: Present: Normal Inspection. No: Edema Neurological: Present: GCS=15, CN II-XII Intact, Speech Normal Skin: Present: Warm, Dry, Normal Color. No: Rashes Psychiatric: Present: Alert, Oriented x 3, Normal Insight, Normal Concentration Medical Decision Making ED Course and Treatment: 02/23/18 04:29 Impression: 47 year old female complaining of worsening diffuse abdominal pain and nausea. Plan: -- CT Abdomen and Pelvis with IV contrast -- Labs, lipase -- IV fluids -- Zofran -- Morphine -- Reassess and disposition Prior Visits: Notes and results from previous visits were reviewed. Progress Notes: 02/23/18 05:11 Case discussed with cardiovascular surgical tech communication skills instructor, who is aware and agrees to evaluate pt. 02/23/18 05:51 Pt. seen by cardiovascular surgical tech.Ultrasound un officially shows gallstones no impaction no CBD dilatation.LFTs normal.Pt. pain out of proportion to findings.Agrees with Abdominal CT. 02/23/18 07:[address] Villanueva/pending CT Scan Abd/Pel./final disposition - Lab Interpretations Lab Results: 02/23/18 04:25 02/23/18 04:25 Lab Results 02/23/18 04:25: WBC 8.7 D, RBC 4.70, Hgb 14.5, Hct 42.0, MCV 89.4, MCH 30.9, MCHC 34.5, RDW 14.0, Plt Count 282, MPV 10.3 02/23/18 04:25: Sodium 141, Potassium 3.2 L, Chloride 107, Carbon Dioxide 23, Anion Gap 14, BUN 12, Creatinine 0.7, Est GFR ( Amer) > 60, Est GFR (Non- Af Amer) > 60, Random Glucose 125 H, Calcium 9.8, Total Bilirubin 0.5, AST 35, ALT 21, Alkaline Phosphatase 81, Total Protein 7.0, Albumin 4.2, Globulin 2.8, Albumin/Globulin Ratio 1.5, Lipase 204 I have reviewed the lab results: Yes - RAD Interpretation Radiology Orders: 02/23/18 04:43 ABD & PELVIS IV CONTRAST ONLY [CT] Stat 02/23/18 05:07 ABDOMEN COMPLETE [US] Stat - Medication Orders Current Medication Orders: Discontinued Medications Sodium Chloride (Sodium Chloride 0.9%) 1,000 mls @ 999 mls/hr IV .Q1H1M STA Stop: 02/23/18 05:31 Last Admin: 02/23/18 04:35 Dose: 999 mls/hr eMAR Start Stop Document 02/23/18 04:35 JOL (Rec: 02/23/18 04:36 JOLivan [id number]) Intravenous Solution Start Date 02/23/18 Start Time 04:35 End Date 02/23/18 End time 05:36 Total Infusion Time 61 Morphine Sulfate (Morphine) 4 mg IVP STAT STA Stop: 02/23/18 04:31 Last Admin: 02/23/18 04:35 Dose: 4 mg MAR Pain Assessment Document 02/23/18 04:35 JOL (Rec: 02/23/18 04:35 JOL [id number]) Pain Reassessment Is this a pain reassessment? No Sleep Is patient sleeping during reassessment? No Presence of Pain Presence of Pain Yes Pain Scale Used Pain Scale Used Numeric Location Upper or Lower Upper Pain Location Body Site Abdomen Description Intensity of Pain at present 10 Pain Behavior Moaning Crying Guarding Withdrawal from Touch Restlessness Facial Grimacing Screaming Aggravating Factors ADL's Changing Position IVP Administration Document 02/23/18 04:35 JOL (Rec: 02/23/18 04:35 JOL [id number]) Charges for Administration # of IVP Administrations 1 Re-Assess: BRITT Pain Assessment Document 02/23/18 05:35 JOL (Rec: 02/23/18 05:55 JOL [id number]) Pain Reassessment Is this a pain reassessment? Yes Sleep Is patient sleeping during reassessment? No Presence of Pain Presence of Pain Yes Pain Scale Used Pain Scale Used Numeric Location Upper or Lower Upper Pain Location Body Site Abdomen Description Intensity of Pain at present 4 Pain Behavior Restlessness Facial Grimacing Alleviating Factors/Management Medication Techniques Morphine Sulfate (Morphine) 4 mg IVP STAT STA Stop: 02/23/18 04:43 Last Admin: 02/23/18 04:45 Dose: 4 mg [facility] Pain Assessment Document 02/23/18 04:45 JOL (Rec: 02/23/18 04:46 JOL [id number]) Pain Reassessment Is this a pain reassessment? No Sleep Is patient sleeping during reassessment? No Presence of Pain Presence of Pain Yes Pain Scale Used Pain Scale Used Numeric Location Upper or Lower Upper Pain Location Body Site Abdomen Description Description Sharp Intensity of Pain at present 9 Pain Behavior Moaning Crying Restlessness Facial Grimacing Screaming Aggravating Factors ADL's Changing Position IVP Administration Document 02/23/18 04:45 JOL (Rec: 02/23/18 04:46 JOL [id number]) Charges for Administration # of IVP Administrations 1 Re-Assess: BRITT Pain Assessment Document 02/23/18 05:45 JOL (Rec: 02/23/18 05:56 JOL [id number]) Pain Reassessment Is this a pain reassessment? Yes Sleep Is patient sleeping during reassessment? No Presence of Pain Presence of Pain Yes Pain Scale Used Pain Scale Used Numeric Location Upper or Lower Upper Pain Location Body Site Abdomen Description Intensity of Pain at present 4 Pain Behavior Rubbing Site Restlessness Facial Grimacing Alleviating Factors/Management Medication Techniques Ondansetron HCl (Zofran Inj) 4 mg IVP ONCE ONE Stop: 02/23/18 04:31 Last Admin: 02/23/18 04:35 Dose: 4 mg IVP Administration Document 02/23/18 04:35 JOL (Rec: 02/23/18 04:35 CHRISTIANO [id number]) Charges for Administration # of IVP Administrations 1 Potassium Chloride (K-Dur 20 Meq Er Tab) 40 meq PO STAT STA Stop: 02/23/18 05:10 - Scribe Statement The provider has reviewed the documentation as recorded by the Scribe Parul Matias All medical record entries made by the Scribe were at my direction and personally dictated by me. I have reviewed the chart and agree that the record accurately reflects my personal performance of the history, physical exam, medical decision making, and the department course for this patient. I have also personally directed, reviewed, and agree with the discharge instructions and disposition. Disposition/Present on Arrival - Present on Arrival Any Indicators Present on Arrival: No History of DVT/PE: No History of Uncontrolled Diabetes: No Urinary Catheter: No History of Decub. Ulcer: No History Surgical Site Infection Following: None - Disposition Have Diagnosis and Disposition been Completed?: No Diagnosis: Abdominal pain Disposition Time: 07:00 Patient Problems: Current Active Problems Problem Status Onset Abdominal pain Acute Condition: STABLE Referrals: Will Garrett MD [Staff Provider] - Forms: [employer] (Georgian)
[2018-02-23] MEDS ORDERED: Morphine 4 mg/ml ISec IVP STA (04:30)
[2018-02-23] MEDS ORDERED: Sodium Chloride 0.9% 1,000 ML IV STA (04:31)
[2018-02-23] MEDS ORDERED: Morphine 4 mg/ml ISec ONE (04:33)
[2018-02-23] MEDS ORDERED: HYDROmorphone 1 mg/ml ISec IVP STA (04:40)
[2018-02-23] MEDS ORDERED: Morphine 2 mg/ml ISec IVP STA (04:42)
[2018-02-23 04:55] LABS: HEMOGLOBIN 14.5 g/dL (12.0-16.0); MEAN CELL VOLUME 89.4 fl (80.0-105.0); MEAN CORPUSCULAR HEMOGLOBIN 30.9 pg (25.0-35.0); MEAN CORPUSCULAR HGB CONC 34.5 g/dl (31.0-37.0); MEAN PLATELET VOLUME 10.3 fl (7.0-11.0); RBC 4.7 10^6/uL (3.5-6.1); WHITE BLOOD COUNT 8.7 10^3/ul (4.5-11.0)
[2018-02-23 05:00] LABS: ALB/GLOB RATIO 1.5 (1.1-1.8); ALBUMIN 4.2 g/dL (3.0-4.8); ALT/SGPT 21 U/L (7-56); AST/SGOT 35 U/L (14-36); BLOOD UREA NITROGEN 12 mg/dL (7-21); CALCIUM 9.8 mg/dL (8.4-10.5); GFR AFRICAN-AMERICAN > 60; GFR NON-AFRICAN AMERICAN > 60; LIPASE 204 U/L (23-300)
[2018-02-23] MEDS ORDERED: Potassium Chloride 20 mEq ER Tab PO STA (05:09)
[2018-02-23] MEDS ORDERED: Iohexol 350 MG/100 ML VIAL ONE (06:41)
--- NOTE | 2018-02-23 08:34 | ED PDOC ---
Physical Exam - Physical Exam Narrative Physical Exam (Text): 02/23/18 Head: Present: Atraumatic, Normocephalic Pupils: Present: PERRL Extroacular Muscles: Present: EOMI Conjunctiva: Present: Normal Mouth: Present: Moist Mucous Membranes Neck: Present: Normal Range of Motion. No: Meningeal Signs, MIDLINE TENDERNESS , Paraspinal Tenderness Respiratory/Chest: Present: Clear to Auscultation, Good Air Exchange. No: Respiratory Distress, Accessory Muscle Use Cardiovascular: Present: Regular Rate and Rhythm, Normal S1, S2. No: Murmurs Abdomen: Present: Tenderness (Diffuse abdominal tenderness). No: Distention, Peritoneal Signs Back: Present: Normal Inspection. No: CVA Tenderness, Midline Tenderness, Paraspinal Tenderness Upper Extremity: Present: Normal Inspection. No: Cyanosis, Edema Lower Extremity: Present: Normal Inspection. No: Edema Neurological: Present: GCS=15, CN II-XII Intact, Speech Normal Skin: Present: Warm, Dry, Normal Color. No: Rashes Psychiatric: Present: Alert, Oriented x 3, Normal Insight, Normal Concentration Vital Signs Reviewed: Yes Vital Signs Temp Pulse Resp BP Pulse Ox 02/23/18 08:18 98.2 F 78 18 124/79 98 02/23/18 04:24 100 H 24 134/89 100 Temperature: Afebrile Blood Pressure: Normal Pulse: Regular Respiratory Rate: Normal Appearance: Positive for: Well-Appearing, Non-Toxic, Comfortable Pain Distress: None Mental Status: Positive for: Alert and Oriented X 3 Medical Decision Making ED Course and Treatment: 02/23/18 04:29 Impression: 47 year old female complaining of worsening diffuse abdominal pain and nausea. Plan: -- CT Abdomen and Pelvis with IV contrast -- Labs, lipase -- IV fluids -- Zofran -- Morphine -- Reassess and disposition Prior Visits: Notes and results from previous visits were reviewed. Progress Notes: 02/23/18 05:11 Case discussed with neurosurgical nurse practitioner longwall headgate operator, who is aware and agrees to evaluate pt. 02/23/18 05:51 Pt. seen by neurosurgical nurse practitioner.Ultrasound un officially shows gallstones no impaction no CBD dilatation.LFTs normal.Pt. pain out of proportion to findings.Agrees with Abdominal CT. 02/23/18 07:[address] Villanueva/pending CT Scan Abd/Pel./final disposition. 02/23/18 07:05 Case transferred to [place] by Dr. Gaitan pending CT Scan Abd/Pel./final disposition. Patients notes she wants to go home. As long as imaging results are consistent with safe discharge, patient will be discharged home. Patient to follow up with surgeon in [place]. 02/23/18 09:30 CT of Abdomen/Pelvis shows: 1. Cholelithiasis 2. Abnormality in the pancreatic head, unchanged from prior study. US shows: Gallstones, but no gallbladder wall thickening or pericholecystic fluid. - Lab Interpretations Lab Results: 02/23/18 04:25 02/23/18 04:25 Lab Results 02/23/18 04:25: WBC 8.7 D, RBC 4.70, Hgb 14.5, Hct 42.0, MCV 89.4, MCH 30.9, MCHC 34.5, RDW 14.0, Plt Count 282, MPV 10.3 02/23/18 04:25: Sodium 141, Potassium 3.2 L, Chloride 107, Carbon Dioxide 23, Anion Gap 14, BUN 12, Creatinine 0.7, Est GFR ( Amer) > 60, Est GFR (Non- Af Amer) > 60, Random Glucose 125 H, Calcium 9.8, Total Bilirubin 0.5, AST 35, ALT 21, Alkaline Phosphatase 81, Total Protein 7.0, Albumin 4.2, Globulin 2.8, Albumin/Globulin Ratio 1.5, Lipase 204 - RAD Interpretation Radiology Orders: 02/23/18 04:43 ABD & PELVIS IV CONTRAST ONLY [CT] Stat 02/23/18 05:07 ABDOMEN COMPLETE [US] Stat - Medication Orders Current Medication Orders: Discontinued Medications Sodium Chloride (Sodium Chloride 0.9%) 1,000 mls @ 999 mls/hr IV .Q1H1M STA Stop: 02/23/18 05:31 Last Admin: 02/23/18 04:35 Dose: 999 mls/hr eMAR Start Stop Document 02/23/18 04:35 JOLivan (Rec: 02/23/18 04:36 CHRISTIANO [id number]) Intravenous Solution Start Date 02/23/18 Start Time 04:35 End Date 02/23/18 End time 05:36 Total Infusion Time 61 Morphine Sulfate (Morphine) 4 mg IVP STAT STA Stop: 02/23/18 04:31 Last Admin: 02/23/18 04:35 Dose: 4 mg MAR Pain Assessment Document 02/23/18 04:35 JOL (Rec: 02/23/18 04:35 JOL [id number]) Pain Reassessment Is this a pain reassessment? No Sleep Is patient sleeping during reassessment? No Presence of Pain Presence of Pain Yes Pain Scale Used Pain Scale Used Numeric Location Upper or Lower Upper Pain Location Body Site Abdomen Description Intensity of Pain at present 10 Pain Behavior Moaning Crying Guarding Withdrawal from Touch Restlessness Facial Grimacing Screaming Aggravating Factors ADL's Changing Position IVP Administration Document 02/23/18 04:35 JOL (Rec: 02/23/18 04:35 JOL [id number]) Charges for Administration # of IVP Administrations 1 Re-Assess: [facility] Pain Assessment Document 02/23/18 05:35 JOL (Rec: 02/23/18 05:55 JOL [id number]) Pain Reassessment Is this a pain reassessment? Yes Sleep Is patient sleeping during reassessment? No Presence of Pain Presence of Pain Yes Pain Scale Used Pain Scale Used Numeric Location Upper or Lower Upper Pain Location Body Site Abdomen Description Intensity of Pain at present 4 Pain Behavior Restlessness Facial Grimacing Alleviating Factors/Management Medication Techniques Morphine Sulfate (Morphine) 4 mg IVP STAT STA Stop: 02/23/18 04:43 Last Admin: 02/23/18 04:45 Dose: 4 mg [facility] Pain Assessment Document 02/23/18 04:45 JOL (Rec: 02/23/18 04:46 JOL [id number]) Pain Reassessment Is this a pain reassessment? No Sleep Is patient sleeping during reassessment? No Presence of Pain Presence of Pain Yes Pain Scale Used Pain Scale Used Numeric Location Upper or Lower Upper Pain Location Body Site Abdomen Description Description Sharp Intensity of Pain at present 9 Pain Behavior Moaning Crying Restlessness Facial Grimacing Screaming Aggravating Factors ADL's Changing Position IVP Administration Document 02/23/18 04:45 JOL (Rec: 02/23/18 04:46 JOL [id number]) Charges for Administration # of IVP Administrations 1 Re-Assess: [facility] Pain Assessment Document 02/23/18 05:45 JOL (Rec: 02/23/18 05:56 CHRISTIANO [id number]) Pain Reassessment Is this a pain reassessment? Yes Sleep Is patient sleeping during reassessment? No Presence of Pain Presence of Pain Yes Pain Scale Used Pain Scale Used Numeric Location Upper or Lower Upper Pain Location Body Site Abdomen Description Intensity of Pain at present 4 Pain Behavior Rubbing Site Restlessness Facial Grimacing Alleviating Factors/Management Medication Techniques Ondansetron HCl (Zofran Inj) 4 mg IVP ONCE ONE Stop: 02/23/18 04:31 Last Admin: 02/23/18 04:35 Dose: 4 mg IVP Administration Document 02/23/18 04:35 CHRISTIANO (Rec: 02/23/18 04:35 CHRISTIANO [id number]) Charges for Administration # of IVP Administrations 1 Potassium Chloride (K-Dur 20 Meq Er Tab) 40 meq PO STAT STA Stop: 02/23/18 05:10 - Scribe Statement The provider has reviewed the documentation as recorded by the Scribe Shanice Rivera All medical record entries made by the Scribe were at my direction and personally dictated by me. I have reviewed the chart and agree that the record accurately reflects my personal performance of the history, physical exam, medical decision making, and the department course for this patient. I have also personally directed, reviewed, and agree with the discharge instructions and disposition. Disposition/Present on Arrival - Present on Arrival Any Indicators Present on Arrival: No History of DVT/PE: No History of Uncontrolled Diabetes: No Urinary Catheter: No History of Decub. Ulcer: No History Surgical Site Infection Following: None - Disposition Have Diagnosis and Disposition been Completed?: Yes Diagnosis: Abdominal pain, Gallstones Disposition: HOME/ ROUTINE Disposition Time: 09:29 Patient Plan: Discharge Condition: STABLE Discharge Instructions (ExitCare): Acute Abdomen (Belly Pain), Adult (DC), Gallstones (DC) Additional Instructions: Please follow up with your surgeon in [place] or with Dr. Garrett. Referrals: Will Garrett MD [Staff Provider] - Forms: [employer] (Divehi)
[2018-02-23 09:00] VITALS: RESP 18
[2018-02-23 10:08] VITALS: BP 132/88; PULSE 72; TEMP 98.4; O2SAT 99
--- NOTE | 2018-02-23 10:33 | CT ---
Date of service: 02/23/2018 PROCEDURE: CT Abdomen and Pelvis with contrast HISTORY: abdominal pain COMPARISON: 01/16/2018 CT TECHNIQUE: Contrast dose: 100 cc of Omni 350 Radiation dose: Total exam DLP = 653 mGy-cm. This CT exam was performed using one or more of the following dose reduction techniques: Automated exposure control, adjustment of the mA and/or kV according to patient size, and/or use of iterative reconstruction technique. FINDINGS: LOWER THORAX: Unremarkable. LIVER: Unremarkable. No gross lesion or ductal dilatation. GALLBLADDER AND BILE DUCTS: There is a small amount of pericholecystic fluid which could be due to cholecystitis. There are no obvious stones PANCREAS: There is a hypodense lesion seen in the head of the pancreas measuring 16 x 26 mm. This is unchanged from the previous study. Further evaluation is recommended. This is suspicious for pancreatic neoplasm. SPLEEN: Unremarkable. ADRENALS: Unremarkable. No mass. KIDNEYS AND URETERS: Unremarkable. No hydronephrosis. No solid mass. VASCULATURE: Unremarkable. No aortic aneurysm. BOWEL: Unremarkable. No obstruction. No gross mural thickening. APPENDIX: Normal appendix. PERITONEUM: Unremarkable. No free fluid. No free air. LYMPH NODES: Unremarkable. No enlarged lymph nodes. BLADDER: Unremarkable. REPRODUCTIVE: Right-sided ovarian cysts BONES: No acute fracture. OTHER FINDINGS: The report concurs with the preliminary [facility] report IMPRESSION: There is a hypodense lesion seen in the head of the pancreas measuring 16 x 26 mm. This is unchanged from the previous study. Further evaluation is recommended. This is suspicious for pancreatic neoplasm. There is a small amount of pericholecystic fluid. Possible cholecystitis.
--- NOTE | 2018-02-23 11:22 | US ---
Date of service: 02/23/2018 HISTORY: abdominal pain COMPARISON: None. TECHNIQUE: Sonographic evaluation of the abdomen. FINDINGS: LIVER: Measures 14.0 cm. Normal echogenicity of the liver parenchyma. No mass. No intrahepatic bile duct dilatation. GALLBLADDER: Multiple gallstones COMMON BILE DUCT: Measures 6.6 mm. No stones. No dilatation. PANCREAS: Unremarkable as visualized. No mass. No ductal dilatation. RIGHT KIDNEY: Measures 10.6 x 4.4 x 4.7cm. Normal echogenicity. No calculus, mass, or hydronephrosis. LEFT KIDNEY: Measures 11.3 x 5.3 x 5.4cm. Normal echogenicity. No calculus, mass, or hydronephrosis. SPLEEN: Normal in size and contour. No mass. 9.4 x 5.8 x 3.3 cm AORTA: No aneurysmal dilatation. IVC: Unremarkable. OTHER FINDINGS: The report concurs with the preliminary [facility] report IMPRESSION: Multiple gallstones
--- NOTE | 2018-02-23 14:11 | CP.PCM.CON ---
History of Present Illness - History of Present Illness History of Present Illness: General Surgery Consult Note for Dr. Garrett CC: Abdominal pain This is a 47F c/o RUQ colicky abdominal pain. The pain started in December on and off on her previous ER visit she had an ultrasound that showed previous stones. She wwas given a referral to see Dr. Kennedy however she did not. This last episode was 2:30 am last night while she was sleeping. Pt. reports having a fatty meal the night of the most recent attack. At the time of exam the patient reports complete resolution of the pain. Pt. reports nausea but did not vomit. Pt denies fever, diarrhea, chills, chest pain, SOB. The patient reports that she has established care with a general surgeon however she has not established a surgery date. PMH: cholilithisasis, GERD, anxiety PSH: All: NKA Meds: Zanax, Ibubrofen otc FH: mom and sister had gall stones SH: smokes 0.5 PPD since the age of 33, denies illicit drugs Review of Systems - Review of Systems Review of Systems: 12 point review of symptoms negative except for abdominal pain Past Patient History - Infectious Disease Hx of Infectious Diseases: None - Tetanus Immunizations Tetanus Immunization: Unknown - Past Social History Smoking Status: Current Some Days Smoker - CARDIAC Hx Cardiac Disorders: Yes Hx Cardia Arrhythmia: Yes (tachycardia) - PULMONARY Hx Respiratory Disorders: Yes Hx Asthma: Yes Hx Bronchitis: Yes - NEUROLOGICAL Hx Neurological Disorder: No - HEENT Hx HEENT Problems: No - RENAL Hx Chronic Kidney Disease: No - ENDOCRINE/METABOLIC Hx Endocrine Disorders: No - HEMATOLOGICAL/ONCOLOGICAL Hx Blood Disorders: No - INTEGUMENTARY Hx Dermatological Problems: No - MUSCULOSKELETAL/RHEUMATOLOGICAL Hx Musculoskeletal Disorders: No - GASTROINTESTINAL Hx Gastrointestinal Disorders: No - GENITOURINARY/GYNECOLOGICAL Hx Genitourinary Disorders: No - PSYCHIATRIC Hx Psychophysiologic Disorder: No Hx Substance Use: No - SURGICAL HISTORY Hx Surgeries: No Meds Allergies/Adverse Reactions: Allergies Allergy/AdvReac Type Severity Reaction Status Date / Time No Known Allergies Allergy Verified 02/23/18 04:24 Physical Exam - Constitutional Appears: Well, No Acute Distress - Head Exam Head Exam: ATRAUMATIC, NORMAL INSPECTION, NORMOCEPHALIC - Respiratory Exam Respiratory Exam: Clear to Auscultation Bilateral, NORMAL BREATHING PATTERN. absent: Rales, Rhonchi, Wheezes, Respiratory Distress, Stridor - Cardiovascular Exam Cardiovascular Exam: REGULAR RHYTHM, RRR, +S1, +S2. absent: Diastolic murmur, Gallop, Rubs, +S4, Systolic Murmur - GI/Abdominal Exam GI & Abdominal Exam: Normal Bowel Sounds, Soft. absent: Organomegaly, Pulsatile Mass, Rigid, Tenderness - Rectal Exam Additional comments: Negative Larose - Extremities Exam Extremities exam: Negative for: pedal edema - Back Exam Back exam: absent: CVA tenderness (L), CVA tenderness (R) - Neurological Exam Neurological exam: Alert, Altered - Psychiatric Exam Psychiatric exam: Normal Affect, Normal Mood - Skin Skin Exam: Dry, Intact Results - Vital Signs Recent Vital Signs: Last Vital Signs Temp 98.4 F 02/23/18 09:35 Pulse 72 02/23/18 09:35 Resp 18 02/23/18 09:35 BP 132/88 02/23/18 09:35 Pulse Ox 99 02/23/18 09:35 - Labs Result Diagrams: 02/23/18 04:25 02/23/18 04:25 Labs: Laboratory Results - last 24 hr 02/23/18 02/23/18 04:25 04:25 WBC 8.7 D RBC 4.70 Hgb 14.5 Hct 42.0 MCV 89.4 MCH 30.9 MCHC 34.5 RDW 14.0 Plt Count 282 MPV 10.3 Sodium 141 Potassium 3.2 L Chloride 107 Carbon Dioxide 23 Anion Gap 14 BUN 12 Creatinine 0.7 Est GFR ( Amer) > 60 Est GFR (Non-Af Amer) > 60 Random Glucose 125 H Calcium 9.8 Total Bilirubin 0.5 AST 35 ALT 21 Alkaline Phosphatase 81 Total Protein 7.0 Albumin 4.2 Globulin 2.8 Albumin/Globulin Ratio 1.5 Lipase 204 Assessment & Plan - Assessment and Plan (Free Text) Assessment: This is a 47F with biliary colic Patient reports she is being managed by another surgeon She prefers not to have surgery at this time D/W With Dr. Garrett [phone]
== END 2018-02-23 09:35 | disposition home or self-care (01) ==
LOC: ED 04:17
DX: K80.20 Calculus of gallbladder without cholecystitis without obstruction (principal); R10.11 Right upper quadrant pain; F17.210 Nicotine dependence, cigarettes, uncomplicated
CPT/HCPCS: 74177; 76700; 80053; 83690; 85027; 96361; 96374; 96375; 99284; J2270; J2405; J7030; Q9967

== ENCOUNTER 2018-03-02 09:20 | Day surgery (SDC) | payer BC ==
[2018-03-02 08:10] VITALS: BMI 29.9
[2018-03-02 10:58] LABS: BASO # 0.02 K/mm3 (0.0-2.0); BASO % 0.3 % (0.0-3.0); EOS # 0.2 (0.0-0.7); EOS % 3.3 % (1.5-5.0); GRAN # 3.41 (1.4-6.5); HEMOGLOBIN 15.9 g/dL (12.0-16.0); LYMPH % 43.5 % (22.0-35.0); MEAN CELL VOLUME 89.6 fl (80.0-105.0); MEAN CORPUSCULAR HEMOGLOBIN 31.7 pg (25.0-35.0); MEAN CORPUSCULAR HGB CONC 35.3 g/dl (31.0-37.0); MEAN PLATELET VOLUME 10.3 fl (7.0-11.0); MONO # 0.3 (0.1-0.6); MONO % 3.9 % (1.0-6.0); RBC 5.02 10^6/uL (3.5-6.1)
[2018-03-02 11:00] LABS: INR 1.05; PROTHROMBIN TIME 12.1 SECONDS (9.4-12.5)
[2018-03-02 11:03] LABS: PARTIAL THROMBOPLASTIN TIME 34.7 Seconds (25.1-36.5)
[2018-03-02 11:43] LABS: ALB/GLOB RATIO 1.5 (1.1-1.8); ALBUMIN 4.5 g/dL (3.0-4.8); ALT/SGPT 23 U/L (7-56); AMYLASE 83 U/L (35-125); AST/SGOT 13 U/L (14-36); BLOOD UREA NITROGEN 9 mg/dL (7-21); GAMMA GLUTAMYL TRANSPEPTIDASE 89 U/L (8-78); GFR NON-AFRICAN AMERICAN > 60; LIPASE 138 U/L (23-300)
[2018-03-02] MEDS ORDERED: Propofol 10 mg/ml Inj (20 ML) ONE ×3 (12:20→13:46)
[2018-03-02] MEDS ORDERED: Phenylephrine 10 mg/ml Inj ONE (12:52)
[2018-03-02] MEDS ORDERED: Sodium Chloride 0.9% 1,000 ML IV SCH (14:45)
[2018-03-02 16:29] VITALS: BP 103/80; PULSE 99; RESP 16; TEMP 98.2; O2SAT 99
== END 2018-03-02 16:20 | disposition home or self-care (01) ==
LOC: ENDO 09:20
PROVIDERS: ATTEND Internal Medicine Gastroenterology
DX: K86.9 Disease of pancreas, unspecified (principal); K25.9 Gastric ulcer, unspecified as acute or chronic, without hemorrhage or perforation; K80.80 Other cholelithiasis without obstruction; K29.50 Unspecified chronic gastritis without bleeding; K21.9 Gastro-esophageal reflux disease without esophagitis; F41.9 Anxiety disorder, unspecified; R10.9 Unspecified abdominal pain
CPT/HCPCS: 36415; 43239; 43259; 80053; 82150; 82977; 83690; 84703; 85025; 85610; 85730; 88305; 88342; J2001; J2370; J2704; J7030; J7040

== ENCOUNTER 2018-05-03 06:14 | Day surgery (SDC) | payer BC ==
[2018-04-30 10:31] VITALS: BMI 29.7
[2018-05-03] MEDS ORDERED: Iohexol 240 (50 ml) ONE (08:37)
[2018-05-03] MEDS ORDERED: Bupivacaine 0.5% 50 ML IJ ONE (08:37)
[2018-05-03] MEDS ORDERED: HYDROmorphone 1 mg/ml ISec IVP PRN (08:54)
[2018-05-03] MEDS ORDERED: Lactated Ringer's 1,000 ML IV SCH (09:00)
--- NOTE | 2018-05-03 10:34 | PCM.SURG1 ---
Surgeon's Initial Post Op Note - Surgeon's Notes Surgeon: Dr. Garza Language Translator: Dr. Sharp PGY3 Type of Anesthesia: General Endo Anesthesia Administered By: Dr. Crouch Pre-Operative Diagnosis: Symptomatic Cholelithiasis Operative Findings: See operative dictation Post-Operative Diagnosis: Symptomatic Cholelithiasis Operation Performed: Laparoscopic Cholecystectomy Specimen/Specimens Removed: Galbladder Estimated Blood Loss: EBL {In ML}: 1 Blood Products Given: N/A Drains Used: No Drains Post-Op Condition: Good Date of Surgery/Procedure: 05/03/18 Time of Surgery/Procedure: 10:35
[2018-05-03] MEDS ORDERED: HYDROmorphone 1 mg/ml ISec IVP ONE ×2 (10:35→11:01)
[2018-05-03] MEDS ORDERED: HYDROmorphone 1 mg/ml ISec ONE ×2 (10:37→11:01)
[2018-05-03 11:46] VITALS: RESP 20; TEMP 97.4
[2018-05-03 12:21] VITALS: PULSE 88; O2SAT 97
--- NOTE | 2018-05-03 12:51 | RAD ---
Date of service: 05/03/2018 PROCEDURE: Fluoroscopy up to 1 hr HISTORY: GALLBLADDER COMPARISON: TECHNIQUE: Two images were submitted FINDINGS: There are no filling defects in the common duct. Contrast flows into the duodenum without obstruction. There is some extravasation at the injection site with contrast seen along the inferior border of the liver. IMPRESSION: As above
[2018-05-03 14:22] VITALS: BP 105/60
--- NOTE | 2018-05-10 07:10 | OP ---
PROCEDURE DATE: 05/03/2018 PREOPERATIVE DIAGNOSES: Cholelithiasis and chronic cholecystitis. POSTOPERATIVE DIAGNOSES: Cholelithiasis and chronic cholecystitis. PROCEDURE PERFORMED: Laparoscopic cholecystectomy with intraoperative cholangiogram. SURGEON: Grady Garza MD CLIENT EXECUTIVE: Thomas Sharp DO ANESTHESIOLOGIST: Dr. Crouch. ANESTHESIA: General endotracheal anesthesia. ESTIMATED BLOOD LOSS: Minimal. SPECIMEN: Gallbladder with stones. INDICATIONS: The patient is a 47-year-old female with history of recurrent right upper quadrant abdominal pain and cholelithiasis. Patient was diagnosed with chronic cholecystitis and was scheduled for laparoscopic cholecystectomy. DESCRIPTION OF PROCEDURE: The patient was brought to the operating room and placed on the operating table in a supine position. The patient was connected to the EKG, blood pressure, and pulse oximetry monitors. The patient then underwent general endotracheal anesthesia, and was prepped and draped in the usual sterile fashion. First, standard time-out procedure took place, and everybody in the room agreed as to the patient's identity, diagnosis, and procedure to be performed. Using two towel clips, the anterior abdominal wall was elevated and the Veress needle was inserted through the small incision superior to the umbilicus. Once pneumoperitoneum was obtained, a 12 mm trocar was inserted through that incision and careful evaluation of the abdominal cavity revealed the presence of some omental adhesions. The gallbladder was noted to be distended and had some omental adhesions as well. We then placed a second 5 mm trocar and proceeded with careful dissection of the gallbladder infundibulum and cystic duct was then carefully from the surrounding tissue and clipped proximally and a small incision was made on the side of it. A cholangiocatheter was inserted into the cystic duct and cholangiogram was obtained under direct visualization with fluoroscopy. It revealed flow of dye into the entire biliary tree with no evidence of obstruction. Next, the cholangiocatheter was removed. The cystic duct was clipped distally and transected. Cystic artery was also clipped and transected. Next, carefully the gallbladder was taken off its liver bed using the electrocautery. Once completely detached, it was placed into the EndoCatch bag. Now, the right upper quadrant was copiously irrigated. All the irrigant fluid was suctioned out. There was excellent hemostasis. The patient was then awakened and extubated. The wounds were then closed in layers with 0-0 Vicryl for the fascia and 3-0 Vicryl for skin. Dermabond dressing was applied to the wound. Patient tolerated the procedure well and there was no complication. Patient was awakened and transferred to recovery room for further observation. Grady Garza MD MTDD
== END 2018-05-03 17:00 | disposition home or self-care (01) ==
LOC: SDS 06:14
PROVIDERS: ATTEND General Practice
DX: K80.10 Calculus of gallbladder with chronic cholecystitis without obstruction (principal)
CPT/HCPCS: 47563; 84703; 88304; J0690; J1170; J2405; J7120 ×2; Q9966